=== PATIENT | female | born 1975 | race Caucasian/White ===

== ENCOUNTER 2017-02-21 15:49 | Emergency (ER) | payer OTHER ==
--- NOTE | 2017-02-21 18:13 | ED CLINICAL REPORT ---
Clinical Report - Physicians/Mid Levels [facility] [address] [place] [address] 02/21/2017 15:49 Patient: WILLIAM GANNON Time Seen: 16:04 Feb 21 2017. Arrived- By private vehicle. Historian- patient. HISTORY OF PRESENT ILLNESS Chief Complaint: ABDOMINAL PAIN. This started yesterday and is still present. It is described as "pain" and well localized and it is described as located in the upper abdomen and in the periumbilical area. (patient presents with abdominal pain over the last few days, with some nausea. Patient with history of gastroparesis, similar pain. Patient has primary care and GI specialist, with previous endoscopy. Denies any hemoptysis or hematemesis. Denies any melena. Reports she has had good bowel movements, normal for her. Denies any left-sided abdominal pain. Denies history of diverticulitis. Patient denies melena. Denies hematochezia. Denies recent abx.). REVIEW OF SYSTEMS No constipation, black stools, difficulty with urination, pain with urination or fever. No chest pain, difficulty breathing or chills. All systems otherwise negative, except as recorded above. PAST HISTORY Problems: Abdominal Pain. Gastroparesis. Irritable Bowel Syndrome. Colonoscopy. Viral Disease. Hypertension. "Hoffa pad syndrome". Additional Surgeries: Cholecystectomy. Colonoscopy. Hysterectomy. Medications: Domperidone. Lisinopril-Hydrochlorothiazide Oral (Tablet 10-12.5 mg) 1 tablet, daily. Nortriptyline HCl Oral 10 mg, daily. Allergies: Latex. SOCIAL HISTORY Never smoker. Alcohol use. No drug use. ADDITIONAL NOTES The nursing notes have been reviewed. PHYSICAL EXAM Vital Signs: 02/21/2017 15:54 BP: 161/95. HR: 84. RR: 12. O2 saturation: 100%. Temp: 98 F. Pain level now: 8/10. Appearance: Alert. No acute distress. ENT: Ears normal. Nose normal. Pharynx normal. No pharyngeal erythema or tonsillar exudate. Neck: Normal inspection. No lymphadenopathy or thyromegaly. CVS: Normal heart rate and rhythm. Heart sounds normal. Respiratory: No respiratory distress. Breath sounds normal. No decreased air movement. Abdomen: Mild tenderness in the epigastric area. No guarding or Peres's sign present. Back: Normal inspection. No CVA tenderness. Skin: Skin warm. Normal skin color. Neuro: Oriented X 3. LABS, X-RAYS, AND EKG Laboratory Tests: UA-Culture if indicated: (FANY: 02/21/2017 17:35) ( [facility] 02/21/2017 18:07) Final results Test Result Flag Units (Reference) URINE COLOR YELLOW URINE APPEARANCE CLEAR URINE GLUCOSE NEGATIVE (NEGATIVE) URINE BILIRUBIN NEGATIVE (NEGATIVE) URINE KETONE 1+ (NEGATIVE) URINE SPECIFIC GRAVITY 1.025 (1.010-1.030) URINE PH 6.0 (5.0-8.0) URINE PROTEIN TRACE (NEGATIVE) URINE UROBILINOGEN 0.2 EU/dL (0.2-1.0) URINE NITRITE NEGATIVE (NEGATIVE) URINE BLOOD NEGATIVE (NEGATIVE) URINE LEUK ESTERASE NEGATIVE (NEGATIVE) URINE RBC NONE SEEN rbc/hpf (0-1) URINE WBC 1-3 wbc/hpf (0-1) URINE EPITHELIAL CELLS 3-5 EPI/hpf (0-5) URINE BACTERIA TRACE (<1+) (NONE SEEN) URINE COMMENT CULT NOT INDICATED 3+ MUCUSURINE CULTURES ARE SET-UP BASED ON THE FOLLOWING CRITERIA:POSITIVE NITRITEPOSITIVE LEUKOCYTE ESTERASEGREATER THAN 10 WHITE BLOOD CELLSMODERATE (2+) OR GREATER BACTERIA Urine: (FANY: 02/21/2017 17:35) ( [facility] 02/21/2017 17:48) Final results Test Result Flag Units (Reference) URINE NEGATIVE CBC w Diff: (FANY: 02/21/2017 16:30) ( [facility] 02/21/2017 16:39) Final results Test Result Flag Units (Reference) WHITE BLOOD COUNT 7.4 K/uL (4.5-11.5) RED BLOOD COUNT 4.01 M/uL (4.00-5.20) HEMOGLOBIN 13.6 gm/dL (12.0-16.0) HEMATOCRIT 39.9 % (36.0-46.0) MEAN CELL VOLUME 99 fL (80-100) MEAN CORPUSCULAR HGB 34 pg (26-34) MEAN CORPUSCULAR HGB CONC 34 g/dL (31-37) RED CELL DISTRIBUTION WIDTH 11.8 % (11.6-14.8) PLATELET COUNT 234 K/uL (150-400) NEUTROPHIL % 58.1 % (50-75) LYMPH % 33.1 % (25-40) MONO % 6.5 % (3-14) EOSINOPHIL % 1.8 % (0-4) BASOPHIL % 0.5 % (0-2) CMP: (FANY: 02/21/2017 16:30) ( MsgRcvd 02/21/2017 17:01) Final results Test Result Flag Units (Reference) GLUCOSE 91 mg/dL (70-110) BUN 11 mg/dL (7-18) CREATININE 0.8 mg/dL (0.6-1.3) Estimated GFR >60 mL/min Estimated GFR- >60 mL/min Note: Persistent reduction over 3 months in eGFR<60 mL/min/1.73 m2 defines CKD. Patients with eGFR values>=60 mL/min/1.73 m2 may also have CKD if evidence ofpersistent proteinuria. Additional information may be foundat www.kidney.org. SODIUM 140 mmol/L (136-145) POTASSIUM 3.9 mmol/L (3.5-5.1) CHLORIDE 103 mmol/L (98-107) CARBON DIOXIDE 28 mmol/L (21-32) CALCIUM 8.9 mg/dL (8.5-10.1) TOTAL PROTEIN 7.1 g/dL (6.4-8.2) ALBUMIN 4.2 g/dL (3.3-5.0) BILIRUBIN, TOTAL 0.5 mg/dL (0.0-1.0) ALKALINE PHOSPHATASE 88 U/L (46-116) AST (SGOT) 42 H U/L (15-37) ALT (SGPT) 47 U/L (12-78) LIPASE 114 U/L (73-393) . PROGRESS AND PROCEDURES Course of Care: Patient here and they are afebrile, with no signs of leukocytosis or left shift. Patient with some dehydration, positive ketones in urine. Otherwise she is largely with similar pain as her chronic gastroparesis concerns. Patient given Reglan with good improvement in the ER. Patient is stable. Physical exam findings are improved. Symptoms better. Patient/family counseled. Differential Diagnosis: I considered gastritis, gastroenteritis, acute appendicitis, splenic injury, splenic rupture, intraabdominal abscess, urinary tract infection, cystitis, ovarian cyst, pelvic inflammatory disease, pelvic abscess, myocardial infarction, pneumonia, diabetic ketoacidosis and medications as a possible cause of abdominal pain in this patient. This is a partial list of diagnoses considered. Disposition: Discharged. CLINICAL IMPRESSION Chronic epigastric abdominal pain of unknown cause. INSTRUCTIONS Drink plenty of fluids. Prescription Medications: Reglan 10 mg tablets: take 1 orally every 8 hours for 3 days as needed for vomiting. Dispense ten (10). No refills. Substitution is permissible. Follow-up: Follow up with your doctor in three days. (Electronically signed by Lidia Avilez P.A.-C 02/21/2017 18:21)
--- NOTE | 2017-02-21 18:13 | ED ORDER SUMMARY ---
..... Patient: WILLIAM GANNON OrderSheet [facility] VisitID: [id number] [address] [place] [address] 41y, F Registration Date/Time: 02/21/2017 ORDER SHEET Weight: 78.0 kg (stated) Allergies: Latex GENERAL ORDERS: CBC w Diff Urgent (16:00 02/21/2017 EKoroleva P.A.-C) (Ack 16:10 RKaruga) (16:35 RMarsden R.N.) CMP Urgent (16:00 02/21/2017 EKoroleva P.A.-C) (Ack 16:10 RKaruga) (16:35 RMarsden R.N.) Lipase Urgent (16:00 02/21/2017 EKoroleva P.A.-C) (Ack 16:10 RKaruga) (16:35 RMarsden R.N.) Urine Urgent (16:00 02/21/2017 EKoroleva P.A.-C) (Ack 16:10 RKaruga) (17:38 SReitz R.N.) UA-Culture if indicated Urgent (16:00 02/21/2017 EKoroleva P.A.-C) (Ack 16:10 RKaruga) (17:38 SReitz R.N.) Culture, Urine (Urine, Clean Catch) Urgent (18:10 02/21/2017 EKoroleva P.A.-C) (Ack 18:16 RKaruga) MEDICATION ORDERS: IV FLUIDS: IV NS : initial bolus 1000 mL (1000 mL/hr), then 1000 mL/hr for X1 (NOW); Rahat (16:00 02/21/2017 EKoroleva P.A.-C) (Ack 16:06 RMarsden R.N.) (16:35 RMarsden R.N.) Reglan IV 10 mg (NOW) (16:00 02/21/2017 EKoroleva P.A.-C) (Ack 16:06 RMarsden R.N.) (16:35 RMarsden R.N.) ORDER SHEET NOTES: [Electronically signed by Lidia AvilezA.-C (18:21 02/21/2017)] [Electronically signed by Roselia Guillen R.N. (18:25 02/21/2017)] [Electronically signed by Roselia Guillen R.N. (18:02/21/2017)] [Electronically signed by Roselia Guillen R.N. (18:02/21/2017)] [Electronically signed by Roselia Guillen R.N. (18:02/21/2017)] [Electronically locked/signed by Roselia Guillen R.N. (18:02/21/2017)]
--- NOTE | 2017-02-21 18:13 | ED ORDER SUMMARY ---
..... Patient: WILLIAM GANNON OrderSheet [facility] VisitID: [id number] [address] [place] [address] 41y, F Registration Date/Time: 02/21/2017 ORDER SHEET Weight: 78.0 kg (stated) Allergies: Latex GENERAL ORDERS: CBC w Diff Urgent (16:00 02/21/2017 EKoroleva P.A.-C) (Ack 16:10 RKaruga) (16:35 RMarsden R.N.) CMP Urgent (16:00 02/21/2017 EKoroleva P.A.-C) (Ack 16:10 RKaruga) (16:35 RMarsden R.N.) Lipase Urgent (16:00 02/21/2017 EKoroleva P.A.-C) (Ack 16:10 RKaruga) (16:35 RMarsden R.N.) Urine Urgent (16:00 02/21/2017 EKoroleva P.A.-C) (Ack 16:10 RKaruga) (17:38 SReitz R.N.) UA-Culture if indicated Urgent (16:00 02/21/2017 EKoroleva P.A.-C) (Ack 16:10 RKaruga) (17:38 SReitz R.N.) Culture, Urine (Urine, Clean Catch) Urgent (18:10 02/21/2017 EKoroleva P.A.-C) (Ack 18:16 RKaruga) MEDICATION ORDERS: IV FLUIDS: IV NS : initial bolus 1000 mL (1000 mL/hr), then 1000 mL/hr for X1 (NOW); Rahat (16:00 02/21/2017 EKoroleva P.A.-C) (Ack 16:06 RMarsden R.N.) (16:35 RMarsden R.N.) Reglan IV 10 mg (NOW) (16:00 02/21/2017 EKoroleva P.A.-C) (Ack 16:06 RMarsden R.N.) (16:35 RMarsden R.N.) ORDER SHEET NOTES: [Electronically signed by Lidia AvilezA.-C (18:21 02/21/2017)] [Electronically signed by Roselia Guillen R.N. (18:25 02/21/2017)] [Electronically signed by Roselia Guillen R.N. (18:02/21/2017)] [Electronically signed by Roselia Guillen R.N. (18:02/21/2017)] [Electronically signed by Roselia Guillen R.N. (18:02/21/2017)] [Electronically locked/signed by Roselia Guillen R.N. (18:02/21/2017)]
--- NOTE | 2017-02-21 18:13 | ED NURSING NOTES ---
Clinical Report - Nurses [facility] [address] [place] [address] 02/21/2017 15:49 Patient: WILLIMA GANNON TRIAGE Triage time 15:54. Acuity: LEVEL 3. Chief Complaint: ABDOMINAL PAIN and VOMITING. 16:03 02/21/17. Alert. No acute distress. SEPSIS SCREEN: Sepsis Screen. Negative (no infection suspected/documented). DON COMA SCORE: Don Coma Scale: 15- eyes open spontaneously (4); best verbal response- oriented x 4 (5); best motor response- obeys commands (6). --16:03 Essie Limon R.N. 15:54 02/21/17. BP: 161/95. HR: 84. RR: 12. O2 saturation: 100%. Temp: 98 F. Pain level now: 06/25. --16:03 Essie Limon R.N. Weight: 78 kg stated. Height/Length: 63 inches Per Patient. BMI: 30.5. --16:02 Essie Limon R.N. Medications Lisinopril-Hydrochlorothiazide Oral (Tablet 10-12.5 mg) 1 tablet, daily. Nortriptyline HCl Oral 10 mg, daily. --15:58 Essie Limon R.N. Domperidone. --15:59 Essie Limon R.N. Allergies Latex. --15:58 Essie Limon R.N. History Arrived by private vehicle. Historian: patient. This started last night. ( Patient states, "I have gastroparesis. I don't know if that is what is causing the pain."). ( patient states "I feel weird, like lightheaded and confused." Patient states she has felt this way since this morning.). 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 PAST MEDICAL HX: Immunizations: up-to-date. Denies current . SOCIAL HX: Never smoker. Occasional alcohol use. No drug use. FALL RISK ASSESSMENT: Fall risk assessment completed. No fall risk identified. NUTRITIONAL RISK ASSESSMENT: The nutritional risk assessment revealed no deficiencies. FUNCTIONAL ASSESSMENT: Functional assessment: no impairments noted. LEARNING NEEDS ASSESSMENT: The learning needs assessment revealed no barriers. SKIN INTEGRITY ASSESSMENT: Skin integrity risk assessment completed. No skin integrity risk identified. --16:03 Essie Limon R.N. PROBLEMS: Abdominal Pain. Gastroparesis. Irritable Bowel Syndrome. Colonoscopy. Viral Disease. Hypertension. "Hoffa pad syndrome". --15:56 Essie Limon R.N. ADDITIONAL SURGERIES: Cholecystectomy. Colonoscopy. Hysterectomy. --15:57 Essie Limon R.N. Interventions ID band on patient. To treatment room. --16:03 Essie Limon R.N. PHYSICAL ASSESSMENT 16:05 02/21/17. GENERAL / NEURO / PSYCH: Alert. Oriented X 4. Appears in no acute distress. HEENT: Mucous membranes are pink. RESPIRATORY: Respirations not labored. CVS: Capillary refill less than 2 seconds. GI / : Abdomen soft. Abdominal tenderness in the epigastric area. Bowel sounds within normal limits. SKIN: Skin is warm and dry. --16:05 Essie Limon R.N. NURSING PROGRESS NOTES 16:02/21/17. Patient gowned. Two patient identifiers checked. Call light placed in reach. Side rails up x 1. Bed placed in lowest position. Brakes of bed on. Patient ready for evaluation- chart flagged and notification provided. --16:05 Essie Limon R.N. 16:23 02/21/2017 Site #1 started via IV in the right antecubital space with an 22g angiocath; one attempt. Blood drawn: rainbow set. Labeled in the presence of the patient and sent to the lab. Saline lock flushed with 5 mL saline (IV placed by Roselia MABRY). --16:33 Essie Limon R.N. 16:30 02/21/2017 Started bag #1 1000 mL IV Fluids IV NS (Saline); bolus of 1000 mL wide open via site #1. Allergies verified and confirmed 5 rights. IV patency established. IV site checked: no pain, redness, or swelling. IV flushed thoroughly pre- and post-medication administration. --16:35 Essie Limon R.N. 16:35 02/21/2017 Reglan (Metoclopramide HCl) IVP 10 mg given over 2 minute(s) via site #1. Allergies verified and confirmed 5 rights. IV patency established. IV site checked: no pain, redness, or swelling. IV flushed thoroughly pre- and post-medication administration. IVP given by RN. --16:35 Essie Limon R.N. 16:36 02/21/17. ( Patient states "I can't pee yet". Patient is aware she needs to provide urine as soon as possible.). --16:36 Essie Limon R.N. 17:00 02/21/2017 Reglan IVP Response: no adverse reaction pain is improving. The patient feels better. --17:38 Roselia Guillen R.N. 17:38 02/21/17. BP: 118/78. HR: 74. RR: 16. O2 saturation: 100%. Pain level now 10. --17:38 Roselia Guillen R.N. 17:30 02/21/2017 IV Fluids IV NS Discontinued: bag #1 infused. Total amount infused: 1000 mL. IV patency established. IV site checked: no pain, redness, or swelling. IV flushed thoroughly. --18:21 Roselia Guillen R.N. 17:45. Patient ID band checked for patient name, birthdate and medical record number: patient confirmed. Instructions provided to collect clean catch urine and patient verbalized understanding. Clean catch urine collected with return of yellow-colored clear urine; sample sent to lab for urinalysis. Specimen labeled in the presence of the patient. --18:27 Roselia Guillen R.N. DISPOSITION / DISCHARGE 18:20 02/21/17. BP: 123/70. HR: 80. RR: 16. O2 saturation: 100%. Temp: 98.6 F. Pain level now 10. --18:21 Roselia Guillen R.N. 18:21 02/21/2017 Site #1 removed upon discharge. Catheter intact. Manual pressure and bandaid applied. --18:21 Roselia Guillen R.N. 18:22. Condition at departure: stable. No learning barriers present. Discharge instructions provided and reviewed with the patient. Reviewed medication(s) side effects, precautions, dosing and course information. Prescription(s) given to the patient. Reviewed referral to family practice for followup. Patient verbalized understanding. Written instructions provided in Macedonian. The patient was discharged home and unaccompanied at time of discharge. She left the Emergency Department ambulatory and via private vehicle. Medication list reviewed and validated. --18:22 Roselia Guillen R.N. Departure time: 18:22. --18:22 Roselia Guillen R.N. Locked/Released at 02/21/2017 18:27 by Roselia Guillen R.N.
--- NOTE | 2017-02-21 18:28 | ED DISCHARGE INSTRUCTIONS ---
Patient: WILLIAM GANNON General Instructions [facility] VisitID: [id number] [place] [address] 41y, F Registration Date/Time: 02/21/2017 Chronic epigastric abdominal pain of unknown cause. INSTRUCTIONS Drink plenty of fluids. Prescription Medications: Reglan 10 mg tablets: take 1 orally every 8 hours for 3 days as needed for vomiting. Dispense ten (10). No refills. Substitution is permissible. Follow-up: Follow up with your doctor in three days. ADDITIONAL INFORMATION Epigastric Pain (Uncertain Cause) Epigastric pain can be a sign of disease in the upper abdomen. Common causes include: Acid reflux (stomach acid flowing up into the esophagus) Gastritis (irritation of the stomach lining) Peptic Ulcer Disease Inflammation of the pancreas Gallstone Infection in the gallbladder Pain may be dull or burning. It may spread upward to the chest or to the back. There may be other symptoms such as belching, bloating, cramps or hunger pains. There may be weight loss or poor appetite, nausea or vomiting. Since the diagnosis of your pain is not certain yet, further tests will be needed. Sometimes the doctor will treat you for the most likely condition to see if there is improvement before doing further tests. Home Care: Unless told otherwise, you may try antacids (Mylanta or Maalox) help neutralize stomach acid. This may relieve your pain. Take 1-2 tablespoons or tablets one hour after meals and at bedtime. The liquid form coats the stomach better than the chewable tablets and is preferred. If Tagamet (cimetidine), Zantac (ranitidine), or Carafate (sucralfate) has also been prescribed, allow one hour between taking this medicine and taking the antacids. Avoid foods that irritate the stomach. Follow a light diet until you are feeling better. Avoid alcohol, caffeine, and tobacco. Talk to your doctor before taking any [id number] medicine that contains aspirin or an anti-inflammatory drug such as ibuprofen, Advil, Motrin, Naprosyn, or Aleve. Follow Up with your doctor or as advised if you do not improve over the next 48 hours. Get Prompt Medical Attention if any of the following occur: Stomach pain worsens or moves to the right lower part of the abdomen Chest pain appears, or if it worsens or spreads to the chest, back, neck, shoulder, or arm Frequent vomiting (cant keep down liquids) Blood in the stool or vomit (red or black color) Feeling weak or dizzy, fainting, or having trouble breathing Fever of 100.4F (38C) or higher, or as directed by your healthcare provider Abdominal swelling Symptoms With Uncertain Cause [Adult] Based on the exam and any tests that were performed today, the exact cause of your symptoms is not certain. While your condition does not seem serious, the signs of a serious problem may take more time to appear. Therefore, it is important for you to watch for any new symptoms or worsening of your condition.Follow up with your doctor or this facility, as directed.A repeat physical exam or additional testing at a later time may uncover a cause for your symptoms that is not evident today. Home Care: Resume your usual activities and diet when this feels comfortable to do so. Follow Up with your doctor, or as advised by our staff.Contact your doctor sooner if your symptoms do not begin to improve in the next few days. [NOTE: If you had an x-ray, CT scan, ultrasound, or ECG (electrocardiogram), it will be reviewed by a specialist. You will be notified of any new findings that may affect your care.] Get Prompt Medical Attention if any of the following occur: Current symptoms get worse New symptoms appear [place] Diet A bland diet is used for patients with an upset stomach. It consists of foods that are mild and easy to digest. It is better to eat small frequent meals rather than three large meals a day. BEVERAGES OK: Fruit juices, non-caffeinated teas and coffee, non-carbonated peterson AVOID: Carbonated beverage, caffeinated tea and coffee, all alcoholic beverages BREAD OK: Refined white, wheat or rye bread, jaleel or soda crackers, Ev toast, plain rolls, bagels AVOID: Whole-grain bread CEREAL OK: Refined cereals: cooked or ready to eat AVOID: Whole grain cereals and granola, or those containing bran, seeds or nuts DESSERTS OK: Peanut butter and all others except those to "avoid" AVOID: Chocolate, cocoa, coconut, popcorn, nuts, seeds, jam, marmalade FRUITS OK: Canned, cooked, frozen or fresh fruits without seeds or tough skin AVOID: Olives, skin and seeds of fruit MEATS OK: All fresh or preserved meat, fish and fowl AVOID: Any that are prepared with those spices to "avoid" CHEESE & EGGS OK: Eggs, cottage cheese, cream cheese, other cheeses AVOID: All cheeses made with those spices to "avoid" POTATOES & PASTA OK: Potato, rice, macaroni, noodles, spaghetti AVOID: None SOUPS OK: All soups without heavy seasoning AVOID: Soups made with those spices to "avoid" VEGETABLES OK: Canned, cooked, fresh or frozen mildly flavored vegetables without seeds, skins or coarse fiber AVOID: Vegetables prepared with those spices to "avoid"; skin and seeds of vegetables and those with coarse fiber SPICES OK: Salt, lemon and rin[place] juice, vinegar, all extracts, santana, cinnamon, thyme, mace, allspice, paprika AVOID: [place] powder, cloves, pepper, seed spices, garlic, gravy pickles, highly seasoned salad dressings Clear Liquid Diet Clear liquids are any liquid that you can see through as well as those that are very easy to digest. This is used while the body is recovering from irritation or infection of the stomach or intestinal tract. It may also be used before special procedures or surgery. This diet is to be used no more than three days. You may include the following items. Adults Adults should drink a total of 23 quarts of liquid per day. It may be easier to drink small frequent servings rather than a few large ones. Liquids can include: Fruit juices.Strained orange juice or lemonade (no pulp), apple, grape and cranberry juice, clear fruit drinks, sports drinks Beverages.Sport drinks, sodas, mineral water (plain or flavored), tea, black coffee, liquid gelatin (add twice the recommended amount of water) Soups.Clear broth, consomm, bouillon Desserts.Plain gelatin, popsicles, fruit juice bars Children Over 2 years old The following liquids are acceptable for children over age 2: Fruit juices.Strained orange juice or lemonade (no pulp), apple, grape and cranberry juice, clear fruit drinks Beverages. Sports drinks, sodas, mineral water (plain or flavored), tea, liquid gelatin (add twice the recommended amount of water) Soups. Clear broth, consomm, bouillon Desserts. Plain gelatin, popsicles, fruit juice bars Children under 2 years old Oral rehydration fluids such are available at drug stores and most grocery stores without a prescription. You have been given the following additional information: Epigastric Pain (Uncertain Cause) Symptoms With Uncertain Cause Diet, [place] (Adult) Diet, Clear Liquid (Electronically signed by Lidia Avilez P.A.-C 02/21/2017 18:21)
--- NOTE | 2017-02-21 18:28 | ED MED RECONCILIATION SUMMARY ---
Patient: WILLIAM GANNON Medication Reconciliation Report Merged With [facility] VisitID: [id number] [address] [place] [address] 41y, F Registration Date/Time: 02/21/2017 Weight: 78.0 kg Height/Length: 63 in. BMI: 30.5 ALLERGIES: Latex The patient's Home Medications are listed below: THE FOLLOWING MEDICATIONS NEED TO BE RECONCILED: Domperidone Lisinopril-Hydrochlorothiazide Oral (10-12.5 mg) 1 tablet, daily Nortriptyline HCl Oral 10 mg, daily The source(s) of the original Home Medication information: Not obtained. The following Medications were given to the patient in the Emergency Department: IV NS IV Fluids bolus 1000 mL wide open, administered: 02/21/2017 4:30:00 PM Reglan [IVP] IVP 10 mg, administered: 02/21/2017 4:35:00 PM The following Medications were prescribed to the patient: Reglan 10 mg tablets: take 1 orally every 8 hours for 3 days as needed for vomiting. Dispense ten (10). No refills. Substitution is permissible. -- Lidia Avilez P.A.-C
--- NOTE | 2017-02-21 18:28 | ED MAR SUMMARY ---
..... Medication Administration Record [facility] [address] [place] [address] Patient: WILLIAM GANNON Visit ID: [id number] 41y, F Weight: 78.0 kg Height/Length: 63 in BMI: 30.5 ALLERGIES: Latex Start 16:30 02/21/2017 Essie Limon RNgoc, Stop 17:30 02/21/2017 Roselia Guillen R.N. Medication Administered: IV NS (SALINE), Dose: IV Fluids, Bolus: 1000 mL wide open, Dispensed: 1000 mL bag, Site: #1 right AC. Medication Ordered: IV NS : initial bolus 1000 mL (1000 mL/hr), then 1000 mL/hr for X1 (NOW); Rahat. Given 16:35 02/21/2017 Essie Limon, RIvyNIvy Medication Administered: REGLAN [IVP] (METOCLOPRAMIDE HCL), Dose: 10 mg IVP over 2 minute(s), Site: #1 right AC. Medication Ordered: Reglan IV 10 mg (NOW).
--- NOTE | 2017-02-21 18:28 | ED MAR SUMMARY ---
..... Medication Administration Record [facility] [address] [place] [address] Patient: WILLIAM GANNON Visit ID: [id number] 41y, F Weight: 78.0 kg Height/Length: 63 in BMI: 30.5 ALLERGIES: Latex Start 16:30 02/21/2017 Essie Limon RNgoc, Stop 17:30 02/21/2017 Roselia Guillen R.N. Medication Administered: IV NS (SALINE), Dose: IV Fluids, Bolus: 1000 mL wide open, Dispensed: 1000 mL bag, Site: #1 right AC. Medication Ordered: IV NS : initial bolus 1000 mL (1000 mL/hr), then 1000 mL/hr for X1 (NOW); Rahat. Given 16:35 02/21/2017 Essie Limon, RIvyNIvy Medication Administered: REGLAN [IVP] (METOCLOPRAMIDE HCL), Dose: 10 mg IVP over 2 minute(s), Site: #1 right AC. Medication Ordered: Reglan IV 10 mg (NOW).
--- NOTE | 2017-02-21 18:28 | ED MED RECONCILIATION SUMMARY ---
Patient: WILLIAM GANNON Medication Reconciliation Report [facility] VisitID: [id number] [address] [place] [address] 41y, F Registration Date/Time: 02/21/2017 Weight: 78.0 kg Height/Length: 63 in. BMI: 30.5 ALLERGIES: Latex The patient's Home Medications are listed below: THE FOLLOWING MEDICATIONS NEED TO BE RECONCILED: Domperidone Lisinopril-Hydrochlorothiazide Oral (10-12.5 mg) 1 tablet, daily Nortriptyline HCl Oral 10 mg, daily The source(s) of the original Home Medication information: Not obtained. The following Medications were given to the patient in the Emergency Department: IV NS IV Fluids bolus 1000 mL wide open, administered: 02/21/2017 4:30:00 PM Reglan [IVP] IVP 10 mg, administered: 02/21/2017 4:35:00 PM The following Medications were prescribed to the patient: Reglan 10 mg tablets: take 1 orally every 8 hours for 3 days as needed for vomiting. Dispense ten (10). No refills. Substitution is permissible. -- Lidia Avilez P.A.-C
== END 2017-02-21 18:22 | disposition home or self-care (01) ==
LOC: ED SRH 15:49
DX: G89.29 Other chronic pain (principal); R10.13 Epigastric pain; I10 Essential (primary) hypertension; Z91.040 Latex allergy status; Z87.19 Personal history of other diseases of the digestive system
CPT/HCPCS: 90004; 90100; 90469; 92235; 93070; 95059